=== PATIENT | female | born 1955 | race Caucasian/White ===

== ENCOUNTER 2024-11-08 06:33 | Inpatient (IN) | payer OTHER ==
[2024-11-02 12:06] LABS: BASOPHILS # (AUTO) 0.1 X10'3 (0-0.2); BASOPHILS % (AUTO) 0.9 % (0-1); EOSINOPHILS # (AUTO) 0.5 X10'3 (0-0.9); EOSINOPHILS % (AUTO) 6.8 % (0-6); LYMPHOCYTES # (AUTO) 2.1 X10'3 (1.1-4.8); LYMPHOCYTES % (AUTO) 27.7 % (21-51); MEAN CORPUSCULAR HEMOGLOBIN 25.8 PG (27.0-31.0); MEAN CORPUSCULAR VOLUME 83.2 FL (78-98); MEAN PLATELET VOLUME 8.2 FL (7.4-10.4); MONOCYTES # (AUTO) 0.6 X10'3 (0-0.9); MONOCYTES % (AUTO) 8.2 % (2-12); NEUTROPHILS # (AUTO) 4.3 X10'3 (1.8-7.7); NEUTROPHILS % (AUTO) 56.4 % (42-75); PRE OP HEMATOCRIT 36.5 % (35.0-45.0); PRE OP HEMOGLOBIN 11.3 g/dL (12.0-16.0); PRE OP PLATELET COUNT 284 X10'3 (140-440); PRE OP WHITE BLOOD COUNT 7.6 10'3 (4.8-10.8); RED BLOOD COUNT 4.39 X10'6 (4.20-5.60); RED CELL DISTRIBUTION WIDTH 17.3 % (11.5-14.5)
[2024-11-02 12:22] LABS: ALBUMIN 3.4 G/DL (3.4-5.0); ALBUMIN/GLOBULIN RATIO 0.9 (1.1-1.5); ALKALINE PHOSPHATASE 99 IU/L (46-116); BLOOD UREA NITROGEN 12 MG/DL (7-18); BUN/CREATININE RATIO 19.4 (10.0-20.0); CALCIUM 8.9 MG/DL (8.5-10.1); CHLORIDE 105 MMOL/L (99-107); CREATININE 0.62 MG/DL (0.40-0.90); PRE OP ALT 17 U/L (30-65); PRE OP ANION GAP 5 (8-16); PRE OP AST 16 U/L (10-37); PRE OP BILIRUB, TOTAL 0.4 MG/DL (0.0-1.0); PRE OP GLUCOSE 73 MG/DL (70-104); PRE OP POTASSIUM 3.7 MMOL/L (3.4-5.1); PRE OP SODIUM 144 MMOL/L (135-145); TOTAL CARBON DIOXIDE 33.7 MMOL/L (24-32); TOTAL PROTEIN 7.2 G/DL (6.4-8.2); eGFR > 90 ML/MIN
[2024-11-07] MEDS: DOCUMENT DATE & TIME OF BETA-BLOCKER PO ONE (20:00)
[~2024-11-08] VITALS: Ht 167.6 cm; Wt 99.3 kg
[2024-11-08] VITALS (25 sets, daily range): BP systolic 93–154; BP diastolic 51–87; PULSE 61–85; RESP 12–22; TEMP 97–99.4; O2SAT 90–99
[~2024-11-08 06:33] MED LIST: CELE200C PO; EMPA25TA PO; ESCI20TA39 PO; GABA-530 PO; LISI5TAB22 PO; METF-438 PO; METO-411 PO; NORT10CA2 PO; OMEP20CA16 PO; SEMA2PEN SUBCUT; SIMV-42 PO; ZOLM5TAB9 PO
[2024-11-08] MEDS ORDERED: vancomycin 1,000mg inj ONE (06:36)
[2024-11-08] MEDS: tranexamic acid 1gm/0.7% sal. 100 ML IV ONE ×2 (08:02→15:06)
[2024-11-08] MEDS: ceFAZolin 2gm in dextrose, iso 50 ML IV ONE (08:02)
[2024-11-08] MEDS: famotidine 20mg tablet PO ONE (08:03)
[2024-11-08] MEDS: VANCOMYCIN/H2O 1.5g/300mL PB 300 ML IV ONE (08:03)
[2024-11-08] MEDS ORDERED: fentaNYL/PF 50MCG/1 ML 2ML syringe ONE (08:19)
[2024-11-08] MEDS ORDERED: MIDAZolam 1 MG/ML 5ML VIAL ONE (08:20)
[2024-11-08] MEDS ORDERED: propofol inj 20 ML IV ONE (08:56)
[2024-11-08] MEDS: ROPIVAcaine 0.5% (5mg/ml) 30ml vial IJ ONE (11:08)
[2024-11-08] MEDS ORDERED: meperidine/PF 25mg/ml syringe IV PRN ×2 (11:25)
[2024-11-08] MEDS ORDERED: morphine 4 MG/ML inj SYRINge IV PRN (11:25)
[2024-11-08] MEDS ORDERED: proCHLORperazine 10 MG/2 ml inj IV PRN (11:25)
[2024-11-08] MEDS ORDERED: ROPIVAcaine 0.2% (10 MG/5 ML) BOLUS INJECTION ADDCANAL PRN (11:25)
[2024-11-08] MEDS ORDERED: ondansetron/PF 4mg/2ml inj IV PRN ×2 (11:25→13:40)
[2024-11-08] MEDS ORDERED: enalaprilat 1.25mg/ml 2ml vial IV PRN (11:25)
[2024-11-08] MEDS ORDERED: labetalol 20mg/4ml (5mg/ml) syringe IV PRN (11:25)
[2024-11-08] MEDS ORDERED: BUPIVAcaine/PF 7.5mg/ml (0.75%) 10ml vial ONE (11:40)
[2024-11-08] MEDS ORDERED: ROPIVAcaine 0.5% (5mg/ml) 30ml vial ONE (11:40)
[2024-11-08] MEDS: ringers solution, lacted 1,000 ML IV SCH ×2 (12:18→17:01)
[2024-11-08] MEDS: ROPIVAcaine inj 200 MG, epiNEPHrine inj 0.6 MG, morphine 10mg/ml inj. 5 MG in normal sa... IU ONE (12:18)
[2024-11-08] MEDS: ROPIVAcaine 0.2%/PF PUMP/bolus 545 ML ADDCANAL SCH (12:26)
[2024-11-08] MEDS: morphine 2 MG/ML inj. syringe IV PRN (12:35)
[2024-11-08] MEDS ORDERED: HYDROmorphone inj. 0.5 MG/0.5 ML DISP.SYRIN IV PRN (13:40)
[2024-11-08] MEDS ORDERED: HYDROmorphone 1 mg/ml syringe IV PRN (13:40)
[2024-11-08] MEDS ORDERED: naloxone 0.4 mg/ml inj IV PRN (13:40)
[2024-11-08] MEDS ORDERED: acetaminophen 325mg tablet PO PRN (13:40)
[2024-11-08] MEDS: acetaminophen 325mg tablet PO SCH (14:00)
[2024-11-08] MEDS ORDERED: tranexamic acid inj. 1,000 MG in normal saline 100ml IV soln 90 ML IV ONE (14:56)
[2024-11-08] MEDS: meperidine/PF 25mg/ml syringe IV PRN (16:02)
[2024-11-08] MEDS: ceFAZolin/D5W- 1GM premix 50 ML IV SCH (16:06)
[2024-11-08] MEDS: potassium Cl 20mEq in NS 1,000 ML IV SCH (17:04)
[2024-11-08] MEDS: sennosides 8.6mg tablet PO SCH (19:54)
[2024-11-08] MEDS: gabapentin 300mg capsule PO SCH (19:55)
[2024-11-08] MEDS: oxyCODONE IR 5mg (immed. release) tablet PO PRN (19:55)
[2024-11-08] MEDS: metFORMIN 500mg tablet PO SCH (22:44)
[2024-11-08] MEDS: nortriptyline 25mg capsule PO SCH (22:45)
[2024-11-08] MEDS: metoprolol succinate 25mg (24-HOUR) SR. Tablet PO SCH (22:45)
[2024-11-08] MEDS: lisinopril 5mg tablet PO SCH (22:46)
[2024-11-08] MEDS: vancomycin/NS 1 GM ADD-VANTAGE 250 ML IV SCH (22:47)
[2024-11-09] VITALS (7 sets, daily range): BP systolic 82–141; BP diastolic 41–81; PULSE 71–80; RESP 14–20; TEMP 97.4–98.3; O2SAT 89–96
[2024-11-09] MEDS ORDERED: gabapentin 100mg capsule PO SCH
[2024-11-09] MEDS: ESCITALOPRAM 10 mg tablet 10 MG TABLET PO SCH (10:48)
[2024-11-09] MEDS: celeCOXIB 100mg capsule PO SCH (10:48)
[2024-11-09] MEDS: enoxaparin 40mg/0.4ml syringe SQ SCH (10:49)
[2024-11-09] MEDS: pantoprazole 40mg Tablet.DR PO SCH (10:49)
[2024-11-09] MEDS: simvastatin 20mg tablet PO SCH (10:50)
[2024-11-10 06:00] VITALS: BP 136/89; PULSE 84; RESP 18; TEMP 97.4; O2SAT 90
[2024-11-10 06:11] LABS: BASOPHILS % (AUTO) 0.4 % (0-1); EOSINOPHILS # (AUTO) 0.4 X10'3 (0-0.9); EOSINOPHILS % (AUTO) 4.3 % (0-6); HEMATOCRIT 29.7 % (35.0-45.0); HEMOGLOBIN 9.4 g/dl (12.0-16.0); LYMPHOCYTES # (AUTO) 2.1 X10'3 (1.1-4.8); LYMPHOCYTES % (AUTO) 20.6 % (21-51); MEAN CORPUSCULAR HEMOGLOBIN 26.3 PG (27.0-31.0); MEAN CORPUSCULAR HGB CONC 31.7 g/dL (33.0-36.5); MEAN CORPUSCULAR VOLUME 82.9 FL (78-98); MEAN PLATELET VOLUME 8.5 FL (7.4-10.4); MONOCYTES % (AUTO) 10.1 % (2-12); NEUTROPHILS # (AUTO) 6.5 X10'3 (1.8-7.7); NEUTROPHILS % (AUTO) 64.6 % (42-75); PLATELET COUNT 235 X10'3 (140-440); RED BLOOD COUNT 3.58 X10'6 (4.20-5.60); RED CELL DISTRIBUTION WIDTH 17.1 % (11.5-14.5); WHITE BLOOD COUNT 10.1 X10'3 (4.5-11.0)
[2024-11-10 06:30] LABS: ALANINE AMINOTRANSFERASE 15 U/L (12-78); ALBUMIN 2.7 G/DL (3.4-5.0); ALBUMIN/GLOBULIN RATIO 0.8 (1.1-1.5); ALKALINE PHOSPHATASE 72 IU/L (46-116); ANION GAP 4 (8-16); ASPARTATE AMINO TRANSFERASE 11 U/L (10-37); BILIRUBIN,TOTAL 0.3 MG/DL (0.1-1.0); BLOOD UREA NITROGEN 18 MG/DL (7-18); BUN/CREATININE RATIO 24.7 (10.0-20.0); CALCIUM 8.6 MG/DL (8.5-10.1); CHLORIDE 107 MMOL/L (99-107); CREATININE 0.73 MG/DL (0.40-0.90); GLUCOSE 131 MG/DL (70-104); POTASSIUM 4.3 MMOL/L (3.5-5.1); SODIUM 141 MMOL/L (135-145); TOTAL PROTEIN 6.2 G/DL (6.4-8.2); eCRCL 68 ML/MIN; eGFR 79 ML/MIN
[2024-11-10 07:00] VITALS: RESP 18; O2SAT 90
[2024-11-10 14:08] VITALS: RESP 16
[2024-11-10] MEDS: oxyCODONE IR 5mg (immed. release) tablet PO PRN (14:08)
== END 2024-11-10 14:30 | disposition home or self-care (01) | DRG 470 ==
LOC: PAS IN 06:33 → ORTHO 4S 16:45
PROVIDERS: ADMIT Orthopaedic Surgery; ATTEND Orthopaedic Surgery
PROC: 8E0Y0CZ Robotic Assisted Procedure of Lower Extremity, Open Approach (ICD-10-PCS; 2024-11-08)
PROC: 0JH80WZ Insertion of Totally Implantable Vascular Access Device into Abdomen Subcutaneous Tissue and Fascia, Open Approach (ICD-10-PCS; 2024-11-08)
PROC: 3E0T3BZ Introduction of Anesthetic Agent into Peripheral Nerves and Plexi, Percutaneous Approach (ICD-10-PCS; 2024-11-08)
PROC: 3E0T33Z Introduction of Anti-inflammatory into Peripheral Nerves and Plexi, Percutaneous Approach (ICD-10-PCS; 2024-11-08)
PROC: 0SRC0J9 Replacement of Right Knee Joint with Synthetic Substitute, Cemented, Open Approach (ICD-10-PCS; principal; 2024-11-08 08:33)
DX: M17.11 Unilateral primary osteoarthritis, right knee (principal); I10 Essential (primary) hypertension; G43.909 Migraine, unspecified, not intractable, without status migrainosus; D64.9 Anemia, unspecified; E11.9 Type 2 diabetes mellitus without complications; Z90.710 Acquired absence of both cervix and uterus; Z83.3 Family history of diabetes mellitus; Z79.899 Other long term (current) drug therapy
CPT/HCPCS: Z7506; Z7508; 36415; 73560; 80053; 82948; 83036; 85025; 87081; 93005; 97110; 97116; 97162; A4215; A4314; A4615; A6253; A6258; A6446; A6449; A6454; A7000; C1713; C1776; C9250; G0378; J0171; J0690; J1650; J2175; J2250; J2270; J2274; J2704; J2795; J3010; J3370; J3372; J3480; J3490; J7120